=== PATIENT | female | born 1960 | race Caucasian/White ===

== ENCOUNTER → 2023-06-02 14:24 | Outpatient (REF) | payer OTHER, SELFPAY | LOC: HWRAD 14:24 | PROVIDERS: ATTENDING PHYSICIAN Family Medicine Sports Medicine; FAMILY PHYSICIAN Family Medicine | DX: R22.42 Localized swelling, mass and lump, left lower limb (principal) | CPT/HCPCS: 76882 ==

== ENCOUNTER → 2023-12-22 13:54 | Outpatient (REF) | payer OTHER, SELFPAY ==
[2023-12-22 14:55] LABS: HDL Cholesterol 80 mg/dl; LDL Cholesterol, Calculated 179 mg/dl; Total Cholesterol 295 mg/dl (50-199); Triglyceride 182 mg/dl (10-149); Very Low Density Lipoprotein 36 mg/dl (0-30)
== END ==
LOC: REG 13:54
PROVIDERS: ATTENDING PHYSICIAN Internal Medicine Cardiovascular Disease; FAMILY PHYSICIAN Family Medicine
DX: E78.2 Mixed hyperlipidemia (principal)
CPT/HCPCS: 36415; 80061

== ENCOUNTER 2024-06-26 09:44 | Outpatient (RCR) | payer OTHER, SELFPAY ==
[2024-06-26 09:57] VITALS: BP 130/81
[2024-06-26] MEDS: INJECTAFER 265 MG IV (10:30)
[2024-06-26 11:15] VITALS: BP 105/77
== END 2024-07-24 23:59 | disposition home or self-care (01) ==
LOC: OID 09:44
PROVIDERS: ATTENDING PHYSICIAN Internal Medicine; FAMILY PHYSICIAN Family Medicine
DX: D50.9 Iron deficiency anemia, unspecified (principal); K31.7 Polyp of stomach and duodenum; K92.2 Gastrointestinal hemorrhage, unspecified
CPT/HCPCS: 96365; J1439

== ENCOUNTER 2024-07-17 06:25 | Day surgery (SDC) | payer OTHER, SELFPAY | END 2024-07-17 10:10 | disposition home or self-care (01) | LOC: GI 06:25 | PROVIDERS: ATTENDING PHYSICIAN Internal Medicine; FAMILY PHYSICIAN Family Medicine | DX: D50.9 Iron deficiency anemia, unspecified (principal); K44.9 Diaphragmatic hernia without obstruction or gangrene; K31.7 Polyp of stomach and duodenum | CPT/HCPCS: 43251; 43239; 88305 ==

== ENCOUNTER → 2024-09-05 12:37 | Outpatient (REF) | payer OTHER, SELFPAY | LOC: RAD 12:37 | PROVIDERS: ATTENDING PHYSICIAN Family Medicine | DX: R10.32 Left lower quadrant pain (principal); R19.7 Diarrhea, unspecified | CPT/HCPCS: 74177; Q9967 ==

== ENCOUNTER 2024-10-04 11:00 | Observation (INO) | payer OTHER, SELFPAY ==
[2024-10-04] VITALS (9 sets, daily range): BP systolic 102–157; BP diastolic 58–102; BMI 24.6; BMI 23.7
[2024-10-04 05:49] LABS: % Basophils 0.4 % (0-2); % Eosinophils 1.9 % (0-6); % Immature Granulocytes 0.4 % (0-0.5); % Lymphocytes 27.9 % (20.5-51.1); % Monocytes 5.3 % (1.7-9.3); % Neutrophils 64.1 % (42.2-75.2); Absolute Eosinophils 0.2 10^3/uL (0-0.7); Absolute Lymphocytes 2.6 10^3/uL (1.2-3.4); Absolute Monocytes 0.5 10^3/uL (0.1-0.6); Absolute Neutrophils 5.9 10^3/uL (1.4-6.5); Hematocrit 37.9 % (37.0-47.0); Hemoglobin 12.9 g/dL (12.0-16.0); Mean Corpuscular Hgb 28.9 pg (27.0-31.0); Mean Corpuscular Volume 84.8 fL (81.0-99.0); Mean Platelet Volume 9.4 fL (7.4-10.4); Nucleated Red Blood Cells % 0 %; Platelet Count 227 10^3/uL (130-400); Red Blood Cell Count 4.47 10^6/uL (4.20-5.40); Red Cell Dist. Width 12.7 % (11.5-14.5); White Blood Cell Count 9.3 10^3/uL (4.8-10.8)
--- NOTE | 2024-10-04 05:49 | ED.GENMED ---
History of Present Illness
<Jacqueline Cortes PA-C - Last Filed: 10/04/24 12:35>
General
Chief Complaint: Abdominal Pain
Source: patient
Exam Limitations: none
Time Seen by Provider: 10/04/24 05:37
Nursing documentation reviewed up to this point in time: agreed with
History of Present Illness
History of Present Illness:
Note:
CHIEF COMPLAINT(S)
Upper abdominal pain with a burning sensation.
HISTORY OF PRESENT ILLNESS
The patient is a 64-year-old female with a known history of irritable bowel syndrome (IBS) with constipation, who presented with worsening upper abdominal pain. Patient states that she has had this pain chronically for the past year but it acutely
worsened the past week. She reports that the pain started around 7:30 PM and worsened by 2:00 AM. She describes the pain as a burning sensation in the midsection, accompanied by flare-ups. The pain did not radiate to the chest, and she denies
belching but reports increased gas. She reports periods of constipation alternating with cramping abdominal pain. Antacid use provides minimal relief. She has a known history of gastric polyps and a previously diagnosed hiatal hernia. Previous
endoscopic evaluations revealed gastric polyps, some of which were bleeding last year. No recent rectal bleeding or dark stools were noted. There is a strong family history of gallbladder issues.
The patient has been treated with pantoprazole for over a year, previously on preface it, with no change in medication under recent review. Symptoms include burning pain that worsens with exertion but not relieved by dietary changes, with a temporal
relationship suggesting exacerbations at night. The patients GI care is managed by Dr. Balbuena.
CHRONIC MEDICAL CONDITIONS SIGNIFICANTLY AFFECTING CARE
- Irritable bowel syndrome with constipation.
SOCIAL DETERMINANTS AFFECTING HEALTH
The patient is actively managing stress and diet as recommended by her primary care and manager user experience.
PHYSICAL EXAM
General: Patient is well appearing and in no acute distress; non-toxic
Skin: Warm and dry, no rashes or lesions
Head: Normocephalic, atraumatic
Eyes: Sclera non-icteric. EOMs intact.
Cardiac: Regular rate and rhythm, no murmurs
Pulm: Normal respiratory effort, no wheezes, rales, or rhonchi
Abdomen: Periumbilical abdominal tenderness noted
Neuro: CN II-XII intact, no focal neurologic deficits.
Psychiatric: Appropriate mood and affect.
DIFFERENTIAL DIAGNOSIS
The Differential Diagnosis includes, in no particular order and is not limited to:
1. Irritable bowel syndrome with constipation exacerbation
2. Hiatal hernia
3. Gastric polyps with potential bleeding
4. Cholecystitis or cholelithiasis (gallbladder disease)
5. Peptic ulcer disease
6. Gastroesophageal reflux disease (GERD)
7. Pancreatitis
8. Gastroparesis
9. Biliary dyskinesia
10. Gastritis
CHART REVIEWED
- reviewed most recent CT of the abdomen
- reviewed endoscopy report
MDM
Case signed out to Jose Antonio GARRIDO pending CT scan results
Past History
<Jacqueline Cortes PA-C - Last Filed: 10/04/24 12:35>
Past History
ED Past Medical History: Valvular disease (PDA), Other (Irritable bowel syndrome) and Other (Microcytic anemia. 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
ED Past Surgical History: Cardiac (Ductus arteriosis plugged 2015)
Social History
Tobacco: Non-smoker
Alcohol: None
Personal:
Living: with family
Employment: Employed
Family History
Family History: Other ([place])
Review of Systems
<Jacqueline Cortes PA-C - Last Filed: 10/04/24 12:35>
Review of Systems
All Other Systems: ROS reviewed and negative except as documented in HPI and ROS
Phy Exam
<Jacqueline Cortes PA-C - Last Filed: 10/04/24 12:35>
Physical Exam
Physical Exam:
Hope physical
Course
<Jacqueline Cortes PA-C - Last Filed: 10/04/24 12:35>
Orders/Labs/Results
Orders:
Orders
10/04/24 05:32
Basic Metabolic Panel Urgent
Comment: NO K
Complete Blood Count/With Diff Urgent
Lipase Urgent
Urine Microscopic Reflex Cult Urgent
Urine Reflex Culture from [facility] [Urinalysis Reflex To Culture] Urgent
Date Specimen was Collected: 10/04/24
Time Specimen was Collected: 05:16
10/04/24 05:47
Electrocardiogram (*1) Urgent
Reason for Study: Abdominal Pain
10/04/24 05:48
CT Abd/pelvis W Iv Cont Urgent
Comment:
Reason For Exam: periumbilical pain
Mag Hydrox/Al Hydrox/Simeth [Maalox] 30 ml Phenobarb/Hyoscy/Atropine/Scop [] 10 ml PO NOW
Pantoprazole [Protonix IV] 40 mg IV NOW STA
10/04/24 05:52
Mag Hydrox/Al Hydrox/Simeth [Maalox] 30 ml .ROUTE .STK-MED ONE
Phenobarb/Hyoscy/Atropine/Scop [] 10 ml .ROUTE .STK-MED ONE
10/04/24 06:08
Troponin I Urgent
10/04/24 10:14
Admit/Transfer Patient As Directed
Co-Sign Provider:
Level of Care: Observation services
Assign to:: Medical/Surgical
Physician / Group: yari mckeon
Diagnosis: Acute pancreatitis
10/04/24 10:15
Code Status As Directed
Resuscitation Status: Full Code
PRN Pain Medication Management As Directed
May give lesser potent ordered pain med per pt: Yes
preference::
Protocol:: Medication orders for pain may be administered in a
manner that supports deferring to patient preference
when the pt is:
- Requesting an ordered lesser potent pain medication.
Least to most potent pain medications are defined
as: acetaminophen < NSAID < tramadol < opioids
(morphine, oxycodone, hydromorphone).
- Requesting a lesser dose of the same medication IF
ORDERED.
- Requesting a less intrusive route of administration
if both routes are prescribed by the provider (PO <
IV).
Abnormal Lab Results
10/04/24
05:32
Chloride 111 H mmol/L
(98-107)
Glucose 123 H mg/dl
(70-99)
Urine Bacteria (Reflex) Few A
(Negative)
Urine Albumin (Reflex) 1+ A
(Neg - Trace)
10/04/24 05:32
10/04/24 05:32
Vital Signs
Initial and Last Documented VS:
Initial Vital Signs
Temp Pulse Resp BP Pulse Ox
98.3 F 99 18 157/96 99
10/04/24 05:08 10/04/24 05:08 10/04/24 05:08 10/04/24 05:08 10/04/24 05:08
Last Documented Vital Signs
Temp Pulse Resp BP Pulse Ox
97.5 F 84 18 131/91 99
10/04/24 05:34 10/04/24 05:34 10/04/24 05:34 10/04/24 12:16 10/04/24 12:17
<Tyrell Rogers PA-C - Last Filed: 10/04/24 09:57>
Orders/Labs/Results
Orders:
Orders
10/04/24 05:32
Basic Metabolic Panel Urgent
Comment: NO K
Complete Blood Count/With Diff Urgent
Lipase Urgent
Urine Microscopic Reflex Cult Urgent
Urine Reflex Culture from [facility]A [Urinalysis Reflex To Culture] Urgent
Date Specimen was Collected: 10/04/24
Time Specimen was Collected: 05:16
10/04/24 05:47
Electrocardiogram (*1) Urgent
Reason for Study: Abdominal Pain
10/04/24 05:48
CT Abd/pelvis W Iv Cont Urgent
Comment:
Reason For Exam: periumbilical pain
Mag Hydrox/Al Hydrox/Simeth [Maalox] 30 ml Phenobarb/Hyoscy/Atropine/Scop [] 10 ml PO NOW
Pantoprazole [Protonix IV] 40 mg IV NOW STA
10/04/24 05:52
Mag Hydrox/Al Hydrox/Simeth [Maalox] 30 ml .ROUTE .STK-MED ONE
Phenobarb/Hyoscy/Atropine/Scop [] 10 ml .ROUTE .STK-MED ONE
10/04/24 06:08
Troponin I Urgent
10/04/24 10:14
Admit/Transfer Patient As Directed
Co-Sign Provider:
Level of Care: Observation services
Assign to:: Medical/Surgical
Physician / Group: yari mckeon
Diagnosis: Acute pancreatitis
10/04/24 10:15
Code Status As Directed
Resuscitation Status: Full Code
PRN Pain Medication Management As Directed
May give lesser potent ordered pain med per pt: Yes
preference::
Protocol:: Medication orders for pain may be administered in a
manner that supports deferring to patient preference
when the pt is:
- Requesting an ordered lesser potent pain medication.
Least to most potent pain medications are defined
as: acetaminophen < NSAID < tramadol < opioids
(morphine, oxycodone, hydromorphone).
- Requesting a lesser dose of the same medication IF
ORDERED.
- Requesting a less intrusive route of administration
if both routes are prescribed by the provider (PO <
IV).
Abnormal Lab Results
10/04/24
05:32
Chloride 111 H mmol/L
(98-107)
Glucose 123 H mg/dl
(70-99)
Urine Bacteria (Reflex) Few A
(Negative)
Urine Albumin (Reflex) 1+ A
(Neg - Trace)
10/04/24 05:32
10/04/24 05:32
Vital Signs
Initial and Last Documented VS:
Initial Vital Signs
Temp Pulse Resp BP Pulse Ox
98.3 F 99 18 157/96 99
10/04/24 05:08 10/04/24 05:08 10/04/24 05:08 10/04/24 05:08 10/04/24 05:08
Last Documented Vital Signs
Temp Pulse Resp BP Pulse Ox
97.5 F 84 18 131/91 99
10/04/24 05:34 10/04/24 05:34 10/04/24 05:34 10/04/24 12:16 10/04/24 12:17
<Tyrell Rogers PA-C - Last Filed: 10/04/24 09:57>
*Critical Care Note
Total Time (30-74mins, 75-104mins- exclusive of procedures): Not Applicable
<Tyrell Rogers PA-C - Last Filed: 10/04/24 09:57>
Update Note
Update Note:
Late entry due to patient care department: Overnight PA at 07 [address] for periumbilical/epigastric pain. CT reviewed showing findings consistent with acute pancreatitis although interestingly lipase is normal. Patient
reexamined she does still have epigastric tenderness on exam, given consistency of exam with CT findings this may be a delayed elevation of her lipase and as such we will admit to the hospitalist service for further workup and evaluation of first
bout of acute pancreatitis
ED Attending Note
<Jacqueline Cortes PA-C - Last Filed: 10/04/24 12:35>
-
Portions of this chart may have been created with voice recognition software.� Occasional wrong word or��sound alike� substitutions may have occurred due to the inherent limitations of voice recognition software.
Discharge Plan
Departure
Patient Disposition: Admit
Date of Disposition: 10/04/24
Time of Disposition: 09:56
Admit to: Med/Surg
Presentation/result/management discussed w/ accepting MD/DO: Hospitalist
Discharge Problem:
Acute pancreatitis
Interventions
Interventions:
*Risk Screen - Suicide Last Done: 10/04/24 05:08
*General Assessment Last Done: 10/04/24 05:08
*Neglect/Abuse Screening Last Done: 10/04/24 05:08
*ED COVID-19 Vaccine History Last Done: 10/04/24 05:08
PJ-Evdrko-Shfjsiunay Assessment Last Done: 10/04/24 05:41
[2024-10-04 05:51] LABS: Urine Albumin 1+ (Neg - Trace); Urine Bilirubin Negative (Negative); Urine Character Clear (Clear); Urine Color Amber; Urine Glucose Negative (Negative); Urine Ketone Negative (Negative); Urine Leukocyte Negative (Negative); Urine Nitrite Negative (Negative); Urine Occult Blood Negative (Negative); Urine Specific Gravity 1.025 (<1.030); Urine Urobilinogen Negative (Neg - 1+)
[2024-10-04] MEDS: MAALOX 30 PO (06:03)
[2024-10-04] MEDS: PROTONIX IV 40 MG IV (06:04)
[2024-10-04 06:07] LABS: Blood Urea Nitrogen 10 mg/dl (7-17); Calcium 9.9 mg/dl (8.4-10.2); Carbon Dioxide 26 mmol/L (22-30); Chloride 111 mmol/L (98-107); Estimated Creatinine Clearance 65 ml/min; Glucose 123 mg/dl (70-99); Lipase 121 U/L (23-300); Sodium 144 mmol/L (135-145); eGFR > 60.00
[2024-10-04 06:30] LABS: Urine Squamous Cell 16-20 /LPF (Few)
[2024-10-04 06:32] LABS: Urine Red Blood Cell None Seen /HPF (0-2); Urine White Cell 0-2 /HPF (0-5)
[2024-10-04 06:33] LABS: Urine Bacteria Few (Negative)
[2024-10-04 06:42] LABS: Troponin I < 0.012 ng/ml
--- NOTE | 2024-10-04 09:58 | HPS.HSE ---
Family Physician
-
Family Physician: NOT KNOW UNKNOWN - PT DOES
Chief Complaint
-
Abdominal pain
History of Present Illness
Patient is a pleasant 64 years old with history of irritable bowel syndrome, depression, GERD who came to the ER with worsening upper abdominal, patient has history of IBS with constipation and used to have mid abdominal pain but started last night
and woke her up twice at night associated with nausea with no vomiting.
In the ER blood work unremarkable but CT abdomen shows evidence of mild pancreatitis.
Patient seen and examined at bedside, denies any chest pain or shortness of breath, improved abdominal pain, no nausea, no vomiting, no diarrhea or constipation.
Patient will be admitted under hospitalist.
Medical History
Past Medical History
Past Medical History: Reports Other
Additional Past Medical History:
Depression, irritable bowel syndrome.
Past Surgical History: Reports Other
Additional Past Surgical History:
EGD
Social History
Tobacco: Non-smoker
Alcohol: None
Drug: None
Family History
Family History: Other (Gallbladder disease)
Allergies / Home Medications
Allergies reflects when Allergies were last updated in [facility].
Home Medications with original date entered in [facility]
Allergy/Medication List:
Allergies
Allergy/AdvReac Type Severity Reaction Status Date / Time
nitrofurantoin (From Allergy Unknown Verified 10/04/24 05:12
Macrobid)
nitrofurantoin Allergy Unknown Verified 10/04/24 05:12
macrocrystalline (From
Macrobid)
Home Medications
bupropion HCl 150 mg 24 hr tablet, extended release 150 mg PO HS Mental Health/Anxiety 06/26/24
pantoprazole 40 mg tablet,delayed release 40 mg PO DAILY Gastrointestinal Issue 06/26/24
calcium carbonate (Tums) 200 mg PO BIDPRN PRN gerd 10/04/24
loperamide 2 mg tablet 2 mg PO BIDPRN PRN diarrhea 10/04/24
pseudoephedrine HCl 30 mg tablet (Sudafed) 30 mg PO DAILYPRN PRN allergies 10/04/24
Review of Systems
-
A 12 point ROS was completed and negative except as noted: Yes
Constitutional: Reports Fatigue; Denies Fever, Weight Gain, Weight Loss or Sleep Disturbance
EENT: Denies Tearing, Sore Throat, Mouth Pain, Mouth Swelling or Runny Nose
Respiratory: Denies Cough, Hemoptysis or Trouble Breathing
Cardiac: Denies Chest Pain, Diaphoresis, Palpitations or Syncope
Abdomen/GI: Reports Abdominal Pain and Nausea; Denies Vomiting, Diarrhea, Constipated, Bloody Stools or Black Stools
: Denies Dysuria, Frequency, Flank Pain, Incontinence, Difficulty Voiding, Urgency, Bleeding or Dark Urine
Musculoskeletal: Denies Joint Pain, Joint Swelling, Muscle Pain, Muscle Stiffness or Edema
Skin: Denies Itching or Rash
Neurological: Denies Dizzy, Headache, Weakness or Numbness
Endocrine: Denies Polyuria, Polydipsia or Temp Intolerance
Hematologic/Lymphatic: Denies Bleeding, Swollen Glands or Bruising
Psych: Reports Calm; Denies Depression, Anxiety or Panic Disorder
Physical Exam
Vital Signs
Vital Signs
Temp Pulse Resp BP Pulse Ox
97.5 F 84 18 147/102 97
10/04/24 05:34 10/04/24 05:34 10/04/24 05:34 10/04/24 08:00 10/04/24 08:30
Physical Exam
General: Well Developed, Well Nourished, No Apparent Distress, Comfortable and Good Appetite; No Pain, Chills or Sweats
HEENT: NormoCephalic, Moist mucous membranes, Atraumatic, Good Dentition, PERRLA, Nose Appears Normal and Ears Appear Normal
Respiratory: Clear
Cardiac: S1/S2 and Regular Rhythm
Breast: Deferred by me
GI: Soft, Non Tender, Non Distended and Normal Bowel Sounds
Genito-urinary: Deferred by me
Musculoskeletal: No Clubbing, No Cyanosis and No Edema
Skin: Warm; No Rash, Jaundice, Ulcers, Lesions or Decubitus Ulcers
Neuro: Awake, Alert, Oriented, AO x 3, No Motor Deficits, Nonfocal/grossly intact and Cranial Nerves Intact
Hematologic/Lymphatic: No Lymphadenopathy
Psych: Calm
Laboratory Results
-
10/04/24 05:32
10/04/24 05:32
Laboratory Results
Total Bilirubin Cancelled 10/04/24 05:32
AST Cancelled 10/04/24 05:32
ALT Cancelled 10/04/24 05:32
Alkaline Phosphatase Cancelled 10/04/24 05:32
Troponin I < 0.012 ng/ml 10/04/24 06:08
Lipase 121 U/L (23-300) 10/04/24 05:32
Data Reviewed
-
Diagnostic Radiology: Report Reviewed by me
CT Scan: Report Reviewed by me
Medical Tests (Nuc Med, Echo, EKG etc): Report Reviewed by me
Lab Data: Labs Reviewed by me
Old Records: Reviewed
Impression/Plan
-
IMPRESSION:
Patient is a pleasant 64-year-old old with history of IBS, reflux, depression who came to the ER with abdominal pain, nausea, lipase normal but CAT scan showed Findings suggesting mild acute pancreatitis. Clinical and laboratory correlation
recommended.
Assessment/plan:
Abdominal pain and CAT scan finding suggestive mild acute pancreatitis.
Description of the pain correlate more with IBS flareup.
No radiation to the back.
Normal lipase.
Check in a.m.
Start clear liquid diet and IV fluid.
Pain and nausea control.
Check triglyceride.
GERD.
Continue metoprolol.
Anxiety /depression.
Continue home meds
CODE STATUS: Full code
DVT prophylaxis: Lovenox
Diet: clear diet
Total time spent on today's encounter was 75 minutes which included time spent in counseling the patient/family regarding diagnosis and treatment plan as listed above, goals of care, and symptom management. Case was discussed with nursing staff,
specialists, and care coordinators/case management. All labs and imaging personally reviewed by me. Remainder the time spent in detailed review of previous records, lab data, imaging, and other medical provider documentation.
--- NOTE | 2024-10-04 11:48 | CM ---
CM reviewed chart and met with pt in ED. Obs form completed. Lives with SO Tad, multistory home, 2 [address].
No DME in Home, had VN in past, possibly [facility], no history SNF.
PCP: Dr Earle Rosa
Pharmacy: [facility]
Plan: home pending ongoing medical evaluation
[2024-10-04] MEDS: ULTRAM 50 MG PO (14:12)
[2024-10-04] MEDS: NSS 1000 IV (15:21)
--- NOTE | 2024-10-04 15:44 | PTCARENOTE ---
Received pt as admit from ED. AAOx4. Independent with ambulation. VSS. Abdominal pain adequately controlled at this time per pt. Assessment documented. IVF infusing through L FA PIV. Pt resting in bed, call glass in reach.
[2024-10-04 17:10] LABS: ALT (SGPT) 24 U/L (0-35); AST (SGOT) 22 U/L (14-36); Albumin 3.8 g/dl (3.5-5.0); Alkaline Phosphatase 76 U/L (38-126); Direct Bilirubin 0.2 mg/dl (0.0-0.4); HDL Cholesterol 60 mg/dl; LDL Cholesterol, Calculated 138 mg/dl; Total Bilirubin 0.6 mg/dl (0.2-1.3); Total Cholesterol 224 mg/dl (50-199); Total Protein 6.8 g/dl (6.3-8.2); Triglyceride 134 mg/dl (10-149); Very Low Density Lipoprotein 26 mg/dl (0-30)
[2024-10-04] MEDS: LOVENOX 40 MG SC (17:20)
[2024-10-04] MEDS: ZOFRAN 4 MG IV (21:24)
[2024-10-04] MEDS: WELLBUTRIN XL (24 hour extended release) 150 MG PO (21:24)
[2024-10-04] MEDS: TYLENOL 650 MG PO (21:30)
[2024-10-05] MEDS: NSS 1000 IV (01:25)
[2024-10-05 07:09] LABS: ALT (SGPT) 22 U/L (0-35); AST (SGOT) 19 U/L (14-36); Albumin 3.3 g/dl (3.5-5.0); Alkaline Phosphatase 74 U/L (38-126); Blood Urea Nitrogen 6 mg/dl (7-17); Calcium 8.9 mg/dl (8.4-10.2); Carbon Dioxide 25 mmol/L (22-30); Chloride 113 mmol/L (98-107); Estimated Creatinine Clearance 65 ml/min; Glucose 95 mg/dl (70-99); Lipase 79 U/L (23-300); Potassium 3.8 mmol/L (3.5-5.1); Sodium 144 mmol/L (135-145); Total Bilirubin 0.6 mg/dl (0.2-1.3); eGFR > 60.00
[2024-10-05 07:21] LABS: Hematocrit 33.8 % (37.0-47.0); Hemoglobin 11.5 g/dL (12.0-16.0); Mean Corpuscular Hgb 29.6 pg (27.0-31.0); Mean Corpuscular Volume 86.9 fL (81.0-99.0); Mean Platelet Volume 9.5 fL (7.4-10.4); Platelet Count 191 10^3/uL (130-400); Red Blood Cell Count 3.89 10^6/uL (4.20-5.40); Red Cell Dist. Width 12.7 % (11.5-14.5); White Blood Cell Count 5.7 10^3/uL (4.8-10.8)
[2024-10-05 07:25] VITALS: BP 121/76
[2024-10-05] MEDS: PROTONIX 40 MG PO (08:40)
--- NOTE | 2024-10-05 10:03 | CM ---
Chart reviewed and patient to return to home with significant other when stable, no needs, AD information provided to patient .
Plan; Home no needs when stable.
[2024-10-05] MEDS: NSS IV (11:32)
[2024-10-05] MEDS: BENTYL 10 MG PO (11:34)
--- NOTE | 2024-10-05 12:18 | W.PN.HOSP.TC ---
Today's Communication/Plan
-
Discharge home if tolerates low residue
Assessment / Plan
Assessment / Plan
Impression:
Patient is a pleasant 64 years old with history of irritable bowel syndrome, depression, GERD who came to the ER with worsening upper abdominal, patient has history of IBS with constipation and used to have mid abdominal pain but started last night
and woke her up twice at night associated with nausea with no vomiting.
In the ER blood work unremarkable but CT abdomen shows evidence of mild pancreatitis.
Patient seen and examined at bedside, denies any chest pain or shortness of breath, improved abdominal pain, no nausea, no vomiting, no diarrhea or constipation.
Patient will be admitted under hospitalist.
Tolerated clear liquid diet, LFTs and lipase normal, possible IBS flareup.
Will be discharged home if tolerates low residual
Assessment/plan:
Abdominal pain and CAT scan finding suggestive mild acute pancreatitis.
Description of the pain correlate more with IBS flareup.
No radiation to the back.
Normal lipase.
Check in a.m.
Start clear liquid diet and IV fluid.
Pain and nausea control.
Check triglyceride.
10/05
Normal triglycerides.
Tolerated clear liquid.
Discharge home if tolerates low residue
GERD.
Continue metoprolol.
Anxiety /depression.
Continue home meds
CODE STATUS: Full code
DVT prophylaxis: Lovenox
Diet: LRD.
CODE STATUS: Full code
Total time spent on today's encounter was 65 minutes which included time spent in counseling the patient/family regarding diagnosis and treatment plan as listed above, goals of care, and symptom management. Case was discussed with nursing staff,
specialists, and care coordinators/case management. All labs and imaging personally reviewed by me. Remainder the time spent in detailed review of previous records, lab data, imaging, and other medical provider documentation.
Anticipated Discharge: Today
Subjective/Interval History
-
Date of Service: October 05, 2024
Patient seen and examined at bedside, denies any chest pain or shortness of breath, still with mild abdominal pain, had nausea last night, no vomiting, no diarrhea or constipation.
Objective Data
-
Labs:
Laboratory Results
10/05/24
06:04
WBC 5.7
Hgb 11.5 L
Hct 33.8 L
Plt Count 191
Sodium 144
Potassium 3.8
Chloride 113 H
Carbon Dioxide 25
BUN 6 L
Creatinine 0.8
Glucose 95
Calcium 8.9
Total Bilirubin 0.6
AST 19
ALT 22
Alkaline Phosphatase 74
Vital Signs:
Vital Signs
Temp Pulse Resp BP Pulse Ox
97.7 F 74 18 121/76 97
10/05/24 07:25 10/05/24 07:25 10/05/24 07:25 10/05/24 07:25 10/05/24 08:10
I&O
10/04/24 10/05/24 10/06/24
06:59 06:59 06:59
Intake Total 720 / 720
Balance 720 / 720
Physical Exam
-
General: Well Developed, Well Nourished, No Apparent Distress and Comfortable
HEENT: Normocephalic, Atraumatic, Moist Mucous Membranes, No Ptosis, PERRLA and Nose Appears Normal
Respiratory: Clear to Auscultation and Non Labored Respirations
Cardiac: Regular Rhythm and S1/S2
Breast: Deferred by me
GI: Soft, Nontender, Nondistended and Normal Bowel Sounds
Genito-urinary: No Costovertebral Tender
Musculoskeletal: No Clubbing, No Cyanosis and No Edema
Skin: Warm
Neuro: Awake, Alert, Oriented, AO x 3 and No Motor Deficits
Psych: Calm
Data Reviewed
-
Diagnostic Radiology: Image personally visualized and interpreted and Report Reviewed by me
CT Scan: Image personally visualized and interpreted and Report Reviewed by me
Ultrasound: Image personally visualized and interpreted and Report Reviewed by me
MRI: Image personally visualized and interpreted and Report Reviewed by me
Medical Tests (Nuc Med, Echo etc): Image personally visualized and interpreted and Report Reviewed by me
Labs: Labs Reviewed by me
Old Records: Reviewed
[2024-10-05 15:18] VITALS: BP 114/70
--- NOTE | 2024-10-05 15:35 | W.DCSUMMARY ---
Discharge Summary
Discharge Data
Date of Admission: 10/04/24
Date of Discharge: 10/05/24
-
Pending Results: No
Hospital Course
Hospital course
Patient is a pleasant 64 years old with history of irritable bowel syndrome, depression, GERD who came to the ER with worsening upper abdominal, patient has history of IBS with constipation and used to have mid abdominal pain but started last night
and woke her up twice at night associated with nausea with no vomiting.
In the ER blood work unremarkable but CT abdomen shows evidence of mild pancreatitis.
Patient seen and examined at bedside, denies any chest pain or shortness of breath, improved abdominal pain, no nausea, no vomiting, no diarrhea or constipation.
Patient will be admitted under hospitalist.
Tolerated clear liquid diet, LFTs and lipase normal, possible IBS flareup.
Will be discharged home if tolerates low residual
During hospitalization patient was treated from the following
Abdominal pain and CAT scan finding suggestive mild acute pancreatitis.
Description of the pain correlate more with IBS flareup.
No radiation to the back.
Normal lipase.
Check in a.m.
Start clear liquid diet and IV fluid.
Pain and nausea control.
Check triglyceride.
10/05
Normal triglycerides.
Tolerated clear liquid.
Discharge home if tolerates low residue
GERD.
Continue metoprolol.
Anxiety /depression.
Continue home meds
CODE STATUS: Full code
DVT prophylaxis: Lovenox
Diet: LRD.
CODE STATUS: Full code
Total time spent on today's encounter was 40 minutes which included time spent in counseling the patient/family regarding diagnosis and treatment plan as listed above, goals of care, and symptom management. Case was discussed with nursing staff,
specialists, and care coordinators/case management. All labs and imaging personally reviewed by me. Remainder the time spent in detailed review of previous records, lab data, imaging, and other medical provider documentation.
Anticipated Discharge: Today
Discharge Plan
-
Patient Disposition: Home (Routine Discharge)
Discharge Diagnosis/Procedures: IBS flareup.
Mild pancreatitis
Diet: Low Fat and Low Residue
Activity: As tolerated
Referrals:
UNKNOWN - PT DOES,NOT KNOW [Family Provider]
Gaye Balbuena, DO [Active, Gastroenterology] - in one to two weeks
Cooper Murray MD [Non-Admitting Privileges, Gastroenterology] - in three to four weeks
Additional Discharge Medication Instructions: Use of Bentyl initially 4 times daily before meals and at bedtime x 5 days then continue as needed for abdominal cramp
Prescriptions:
New
dicyclomine 10 mg capsule
10 mg PO QID Qty: 120 0RF
Continued
pantoprazole 40 mg Tablet,Delayed Release (Dr/Ec)
40 mg PO DAILY
bupropion HCl 150 mg Tablet Extended Release 24 Hr
150 mg PO HS
loperamide 2 mg Tablet
2 mg PO BIDPRN PRN (Reason: diarrhea)
calcium carbonate [Tums] 200 mg calcium (500 mg) Tablet,Chewable
200 mg PO BIDPRN PRN (Reason: gerd)
pseudoephedrine HCl [Sudafed] 30 mg Tablet
30 mg PO DAILYPRN PRN (Reason: allergies)
Discharge Orders:
Discharge Patient (As Directed); Ordered 10/05/24
Ordered By: Jinny Aldana
Discharge Date and Time
Print Language: GERMAN
[2024-10-06 19:38] LABS: Hepatitis C Antibody Negative (Negative)
== END 2024-10-05 18:15 | disposition home or self-care (01) ==
LOC: 4 EAST ACU 11:00
PROVIDERS: Physician Assistant; ADMITTING PHYSICIAN General Practice; EMERGENCY PHYSICIAN Student in an Organized Health Care Education/Training Program
DX: K58.1 Irritable bowel syndrome with constipation (principal); K85.90 Acute pancreatitis without necrosis or infection, unspecified; K44.9 Diaphragmatic hernia without obstruction or gangrene; K31.7 Polyp of stomach and duodenum; R10.9 Unspecified abdominal pain; F32.A Depression, unspecified; K21.9 Gastro-esophageal reflux disease without esophagitis; I49.8 Other specified cardiac arrhythmias; F41.9 Anxiety disorder, unspecified; Z88.1 Allergy status to other antibiotic agents; Z83.79 Family history of other diseases of the digestive system; Z87.01 Personal history of pneumonia (recurrent)
CPT/HCPCS: 74177; 80048; 80053; 80061; 80076; 81003; 81015; 83690; 84484; 85025; 85027; 86803; 93005; 96374; 99285; G0378; Q9967

== ENCOUNTER → 2024-11-03 07:50 | Outpatient (REF) | payer OTHER, SELFPAY | LOC: RAD 07:50 | PROVIDERS: ATTENDING PHYSICIAN Internal Medicine; FAMILY PHYSICIAN Family Medicine | DX: R10.9 Unspecified abdominal pain (principal); K85.00 Idiopathic acute pancreatitis without necrosis or infection | CPT/HCPCS: 78227; A9537; J2805 ==